=== PATIENT | male | born 1975 | race Caucasian/White ===

== ENCOUNTER → 2017-02-11 | Outpatient (CLI) | payer OTHER ==
[2017-02-11 08:46] LABS: MEAN PLATELET VOLUME 9.5 FL (7.4-10.4); RED BLOOD COUNT 4.57 10^6/uL (4.35-5.85); RED CELL DISTRIBUTION WIDTH 13.4 % (10.0-14.5)
[2017-02-11 08:50] LABS: BILIRUBIN,URINE NEGATIVE (NEGATIVE); KETONES,URINE NEGATIVE (NEGATIVE); LEUKOCYTE ESTERASE ,URINE NEGATIVE (NEGATIVE); NITRITE,URINE NEGATIVE (NEGATIVE); PH,URINE 5 (5-9); PROTEIN,URINE 1+ (NEGATIVE); UROBILINOGEN,URINE NORMAL (NORMAL)
[2017-02-11 09:04] LABS: SQUAMOUS EPITHELIAL CELL,UR 0-2 /HPF
[2017-02-11 09:13] LABS: ALANINE AMINOTRANSFERASE 37 U/L (0-55); ALBUMIN 3.9 GM/DL (3.2-4.5); ANION GAP 12 MMOL/L (5-14); ASPARTATE AMINO TRANSFERASE 22 U/L (5-34); BILIRUBIN,TOTAL 0.6 MG/DL (0.1-1.0); BLOOD UREA NITROGEN 4 MG/DL (7-18); BUN/CREATININE RATIO 5; CALCIUM 9.6 MG/DL (8.5-10.1); CARBON DIOXIDE 24 MMOL/L (21-32); CHLORIDE 103 MMOL/L (98-107); CHOLESTEROL 170 MG/DL (< 200); CREATININE SERUM 0.77 MG/DL (0.60-1.30); DIRECT LDL 114 MG/DL (1-129); GFR ESTIMATED > 60; GLUCOSE 100 MG/DL (70-105); POTASSIUM 3.6 MMOL/L (3.6-5.0); SODIUM 139 MMOL/L (135-145); TOTAL PROTEIN 7.9 GM/DL (6.4-8.2); TRIGLYCERIDES 115 MG/DL (<150); VLDL CHOLESTEROL 23 MG/DL (5-40)
[2017-02-11 09:33] LABS: THYROID STIMULATING HORMONE 1.18 UIU/ML (0.35-4.94)
== END ==
LOC: LAB 08:30
PROVIDERS: ATTEND Nurse Practitioner Family
DX: I10 Essential (primary) hypertension (principal); E78.5 Hyperlipidemia, unspecified; Z12.5 Encounter for screening for malignant neoplasm of prostate
CPT/HCPCS: 36415; 80053; 80061; 81000; 84153; 84443; 85027

== ENCOUNTER → 2018-02-12 | Outpatient (CLI) | payer OTHER ==
[2018-02-12 09:27] LABS: ALANINE AMINOTRANSFERASE 34 U/L (0-55); ALKALINE PHOSPHATASE 90 U/L (40-136); BILIRUBIN,TOTAL 0.6 MG/DL (0.1-1.0); BUN/CREATININE RATIO 14; CALCIUM 9.5 MG/DL (8.5-10.1); CARBON DIOXIDE 21 MMOL/L (21-32); CHLORIDE 102 MMOL/L (98-107); CHOLESTEROL 167 MG/DL (< 200); CREATININE SERUM 0.77 MG/DL (0.60-1.30); GFR ESTIMATED > 60; GLUCOSE 102 MG/DL (70-105); HDL CHOLESTEROL 41 MG/DL (40-60); POTASSIUM 4.1 MMOL/L (3.6-5.0); SODIUM 136 MMOL/L (135-145); TOTAL PROTEIN 7.6 GM/DL (6.4-8.2); TRIGLYCERIDES 108 MG/DL (<150); VLDL CHOLESTEROL 22 MG/DL (5-40)
[2018-02-12 09:58] LABS: BILIRUBIN,URINE NEGATIVE (NEGATIVE); CLARITY,URINE CLEAR; COLOR,URINE YELLOW; GLUCOSE, URINE (UA) NEGATIVE (NEGATIVE); KETONES,URINE NEGATIVE (NEGATIVE); LEUKOCYTE ESTERASE ,URINE NEGATIVE (NEGATIVE); NITRITE,URINE NEGATIVE (NEGATIVE); PH,URINE 6.5 (5-9); PROTEIN,URINE NEGATIVE (NEGATIVE); UROBILINOGEN,URINE NORMAL (NORMAL)
[2018-02-12 10:07] LABS: BACTERIA,URINE NEGATIVE /HPF
== END ==
LOC: LAB 08:55
PROVIDERS: ATTEND Family Medicine
DX: I10 Essential (primary) hypertension (principal)
CPT/HCPCS: 36415; 80053; 80061; 81000; 84443

== ENCOUNTER 2018-05-18 05:49 | Outpatient (CLI) | payer OTHER ==
[~2018-05-18] VITALS: Ht 177.8 cm; Wt 179.6 kg
[2018-05-18] MEDS ORDERED: LISI-552 PO (14:33)
[2018-05-18] MEDS ORDERED: CYAN500011 PO (14:33)
[2018-05-18] MEDS ORDERED: MULT1CAP27 PO (14:33)
[2018-05-18] MEDS ORDERED: CETI10TA20 PO (14:33)
[2018-05-18] MEDS ORDERED: PRAV20TA3 PO (14:33)
[2018-05-19] MEDS ORDERED: HYDR-3816 PO (13:41)
== END 2018-05-18 14:23 | disposition home or self-care (01) ==
LOC: PREOP 05:49
PROVIDERS: ATTEND Orthopaedic Surgery
DX: Z01.818 Encounter for other preprocedural examination (principal)

== ENCOUNTER 2018-05-19 09:32 | Day surgery (SDC) | payer OTHER ==
[~2018-05-19] VITALS: Ht 177.8 cm; Wt 179.6 kg
[~2018-05-19 09:32] MED LIST: CETI10TA20 PO; CYAN500011 PO; LISI-552 PO; MULT1CAP27 PO; PRAV20TA3 PO
[2018-05-19 09:45] VITALS: BP 141/84
[2018-05-19] MEDS ORDERED: HYDROcodone/APAP 7.5 MG/325 MG (LORTAB, LORCET PLUS) TABLET PO PRN (09:45)
--- NOTE | 2018-05-19 10:16 | Progress Note-Pre Operative ---
Pre-Operative Progress Note H&P Reviewed The H&P was reviewed, patient examined and no changes noted. Date Seen by Provider: May 19, 2018 Time Seen by Provider: 10:16 Date H&P Reviewed: May 19, 2018 Time H&P Reviewed: 10:16 Pre-Operative Diagnosis: left knee medial meniscus tear and chondromalacia JENS CLEMENT MD May 19, 2018 10:16
--- NOTE | 2018-05-19 10:18 | Progress Note-Post Operative ---
Post-Operative Progess Note Surgeon (s)/Mortgage Clerk (s) Surgeon JENS CLEMENT MD Mortgage Clerk: Maurice Mon Pre-Operative Diagnosis left knee medial meniscus tear and chondromalacia Post-Operative Diagnosis left knee chondromalacia of the patella, medial femoral condyle, lateral tibial plateau Procedure & Operative Findings Date of Procedure 05/19/18 Procedure Performed/Findings left knee arthroscopic chondroplasty of the patella, medial femoral condyle and lateral tibial plateau Anesthesia Type GETA Estimated Blood Loss Estimated blood loss (mL): minimal Specimens/Packing Specimens Removed none Packing: none JENS CLEMENT MD May 19, 2018 10:18
[2018-05-19] MEDS ORDERED: morphine PF (DURAMORPH) 10 MG/10 ML AMP ONE (10:39)
[2018-05-19] MEDS ORDERED: BUPIVACAINE 0.25% 30 ML (SENSORCAINE) VIAL ONE (10:39)
[2018-05-19] MEDS ORDERED: ceFAZolin INJECTION 1,000 MG in WATER (STERILE) FOR INJECTION 10 ML IV ONE (10:45)
[2018-05-19] MEDS ORDERED: LACTATED RINGERS 1,000 ML IV PRN (10:53)
[2018-05-19] MEDS ORDERED: fentaNYL INJECTION 100 MCG/2 ML AMP ONE (10:54)
[2018-05-19] MEDS ORDERED: LIDOCAINE PF 2% 5 ML (XYLOCAINE) VIAL ONE (10:54)
[2018-05-19] MEDS ORDERED: proPOfol 200 MG/20 ML (DIPRIVAN) VIAL IV ONE ×2 (10:54→12:35)
[2018-05-19] MEDS ORDERED: ONDANSETRON 4 MG/2 ML (SDV) Z0FRAN ONE (10:54)
[2018-05-19] MEDS ORDERED: MIDAZOLAM 2 MG/2 ML (VERSED) VIAL ONE (10:54)
[2018-05-19] MEDS ORDERED: DEXAMETHASONE 10 MG/ML (DECADRON) 1 ML VIAL ONE (10:54)
[2018-05-19] MEDS ORDERED: SEVOFLURANE (ULTANE) 15 ML INHAL SOLN ONE ×3 (10:54→12:10)
[2018-05-19] MEDS ORDERED: ONDANSETRON 4 MG/2 ML (SDV) Z0FRAN IV ONE (11:00)
[2018-05-19] MEDS ORDERED: FAMOTIDINE 20MG/2ML IV (PEPCID) IV ONE (11:00)
[2018-05-19] MEDS ORDERED: SCOPOLAMINE 1.5 MG (TRANSDERM-SCOP) PATCH TOP ONE (11:00)
[2018-05-19] MEDS ORDERED: GLYCOPYRROLATE 0.2 MG/ML (ROBINUL) 2 ML VIAL ONE (12:15)
[2018-05-19] MEDS ORDERED: NEOSTIGMINE 1 MG/ML 5 ML SYRINGE ONE (12:15)
[2018-05-19] MEDS ORDERED: PHENYLEPHRINE 100 MCG/ML 10 ML (ANESTHESIA) SYR ONE (12:15)
[2018-05-19] MEDS ORDERED: SUCCINYLCHOLINE INJ 100 MG/5 ML SYR ONE (12:35)
[2018-05-19] MEDS ORDERED: ROCURONIUM 10 MG/ML 5 ML SYRINGE IV ONE (12:35)
[2018-05-19] MEDS ORDERED: ONDANSETRON 4 MG/2 ML (SDV) Z0FRAN IVP PRN (13:00)
[2018-05-19] MEDS ORDERED: morphine INJ 10 MG/ML 1ML (SYR OR VIAL) IVP ONE (13:00)
[2018-05-19 13:20] VITALS: BP 118/61
[2018-05-19] MEDS ORDERED: HYDR-3816 PO (13:41)
[2018-05-19 13:50] VITALS: BP 112/60
[2018-05-19 14:20] VITALS: BP 121/63
--- NOTE | 2018-05-19 14:42 | Anesthesia-General Post-Op ---
General Patient Condition Mental Status/LOC: Same as Preop Cardiovascular: Satisfactory Nausea/Vomiting: Absent Respiratory: Satisfactory Pain: Controlled Complications: Absent Post Op Complications Complications None Follow Up Care/Instructions Patient Instructions None needed. Anesthesia/Patient Condition Patient Condition Patient was seen after the procedure and he was doing well, no complaints, stable vital signs, no apparent adverse anesthesia problems. KANDY CORTEZ DO May 19, 2018 14:42
[2018-05-19 14:44] VITALS: BP 121/63
--- NOTE | 2018-05-19 15:16 | Physical Therapy Progress Note ---
Therapy Progress Note Spoke with patient. He reports he does not feel he needs gait training as he has his right knee scoped recently. Reviewed HEP with patient and he demonstrated correct performance. No evaluation rendered. NELSON DAVE PT May 19, 2018 15:16
--- NOTE | 2018-05-19 17:31 | OPERATIVE REPORT ---
DATE OF SERVICE: 05/19/2018 PREOPERATIVE DIAGNOSES: 1. Left knee medial meniscus tear. 2. Left knee chondromalacia of the patella. POSTOPERATIVE DIAGNOSES: 1. Left knee chondromalacia of the patella. 2. Left knee chondromalacia of the medial femoral condyle. 3. Left knee chondromalacia of the lateral tibial plateau. PROCEDURES PERFORMED: 1. Left knee arthroscopic chondroplasty of the patella, left. 2. Left knee arthroscopic chondroplasty of the medial femoral condyle. 3. Left knee arthroscopic chondroplasty of the lateral tibial plateau. SURGEON: Roberto Clement MD. CAGE OPERATOR: TAMMI Soto, who assisted throughout the procedure and closed the incisions. ANESTHESIA: General endotracheal by Bridgett Bazan CRNA. TOURNIQUET TIME: Not applicable. ESTIMATED BLOOD LOSS: Minimal. DRAINS: None. COMPLICATIONS: None. POSTOPERATIVE PLANS: Routine arthroscopy protocol. The patient was transferred to the recovery room in awake and stable condition. STATEMENT OF MEDICAL NECESSITY: The patient is a 42-year-old gentleman with complaints of left medial and anterior knee pain, catching, locking and swelling. He is tender along the medial joint line and moderate effusion and pain with patellar loading. It was felt that he likely had patellar chondromalacia with associated medial meniscus tear. Due to functional impairment and failure to improve with conservative measures, the patient elected to proceed with surgical intervention. Examination under anesthesia revealed range of motion of 0/0/125 with negative Johnathan, negative anterior and posterior drawer. No varus valgus laxity and negative pivot shift. Arthroscopic findings, patella demonstrated grade II chondral flap superiorly in a 20 x 15 area. The trochlea demonstrated no gross chondral abnormalities. The medial and lateral gutters were clear. The ACL and PCL were intact. The medial compartment showed a grade IV chondral flap on the anterior aspect of the femoral condyle in an 8 x 8 area. No meniscal pathology was noted. The ACL and PCL were intact. The lateral compartment demonstrated grade II chondral flap in the central portion of the tibial plateau in an 8 x 8 area. DESCRIPTION OF PROCEDURE: After risks and benefits of the procedure were discussed and questions were answered and informed consent was signed and placed on chart, the operative site was confirmed in the preoperative holding area initialed by the surgeon. The patient was transferred to the operating room. After adequate level of general endotracheal anesthetic was obtained, a timeout was called confirming the operative site. The left lower extremity was prepped and draped in the usual sterile fashion. The knee joint was injected with 60 mL of fluid. Standard inferolateral portal was placed with the arthroscope under direct visualization and inferior medial portal was created. The menisci and cruciates were carefully probed with the above findings noted. The unstable chondral flaps of the patella were debrided with a shaver back to a stable edge. Scope was redirected into the lateral compartment and the unstable chondral flaps and lateral tibial plateau were debrided with a shaver back to a stable edge. Scope was redirected into the medial compartment where the unstable chondral flaps in the medial femoral condyle were debrided back to a stable edge. The knee was copiously irrigated. Portal sites were closed with 4-0 nylon in subcuticular fashion. Knee was injected with Duramorph. The portal sites were infiltrated with plain Marcaine. A soft dressing was applied and the patient was transported to the recovery room awake and stable condition. Job ID: [id number] DocumentID: [id number] Dictated Date: 05/19/2018 12:29:09 Patrol Mother Date: 05/19/2018 17:30:49 Dictated By: ROBERTO CLEMENT MD
--- NOTE | 2018-05-20 16:03 | HISTORY AND PHYSICAL ---
DATE OF SERVICE: 05/19/2018 This will be for outpatient surgery. CHIEF COMPLAINT: Left knee arthroscopy. HISTORY OF PRESENT ILLNESS: The patient is a 42-year-old gentleman with progressive worsening left knee pain. He reports catching, locking and swelling in his knee. He reports activity limitations because of the knee. He reports he is unable to work because of the knee. He has previously undergone a right knee arthroscopy for similar complaints which resolved arthroscopy, he has undergone injections without relief. Due to functional impairment and failure to improve with conservative measures, the patient has elected to proceed with surgical intervention. REVIEW OF SYSTEMS: No chest pain, no shortness of breath. No dysuria. PAST MEDICAL HISTORY: Hypertension, hypercholesterolemia. PAST SURGICAL HISTORY: Lymph node excision, right knee arthroscopy. PRIMARY CARE PROVIDER: Dr. Malagon. FAMILY HISTORY: Significant for stroke. MEDICATIONS: Zyrtec, lisinopril, pravastatin, vitamin B12. ALLERGIES: No known drug allergies. SOCIAL HISTORY: The patient denies alcohol, tobacco use. RADIOGRAPHS: Reveal no significant degenerative changes of the left knee. PHYSICAL EXAMINATION: GENERAL: The patient is well developed, well-nourished, in no acute distress. HEENT: Normocephalic, atraumatic. Pupils are equal, round and reactive to light. Oropharynx is clear. NECK: Supple, with no lymphadenopathy. LUNGS: Clear to auscultation bilaterally. HEART: Regular rate and rhythm. ABDOMEN: Soft, nontender, nondistended. EXTREMITIES: The left knee demonstrates a moderate effusion. He has marked patellofemoral crepitus and pain with patellar loading. He has a catch when going from flexion to extension at approximately 30 degrees in the left knee. He is mildly tender along his medial joint line and has pain medially with Leonora's. He ambulates with an antalgic gait. Range of motion is 0/0/130. IMPRESSION: Left knee medial meniscus tear with chondromalacia. PLAN: Left knee arthroscopy with partial medial meniscectomy, chondroplasty. The risks, benefits, options, ramifications and recovery were discussed at length with the patient. He understands and wishes to proceed. Job ID: [id number] DocumentID: [id number] Dictated Date: 05/13/2018 11:16:38 Crop Production Advisor Date: 05/13/2018 11:38:00 Dictated By: JENS CLEMENT MD <Dictated by JENS CLEMENT MD> <Electronically signed by JENS CLEMENT MD> 05/15/181955
[2018-05-22] MEDS ORDERED: SCOPOLAMINE PATCH REMOVAL TP SCH (10:59)
== END 2018-05-19 14:50 | disposition home or self-care (01) ==
LOC: SDC 09:32
PROVIDERS: ATTEND Orthopaedic Surgery
DX: M23.232 Derangement of other medial meniscus due to old tear or injury, left knee (principal); Z11.2 Encounter for screening for other bacterial diseases; M22.42 Chondromalacia patellae, left knee; I10 Essential (primary) hypertension; E78.00 Pure hypercholesterolemia, unspecified; K21.9 Gastro-esophageal reflux disease without esophagitis; E66.01 Morbid (severe) obesity due to excess calories; Z68.43 Body mass index [BMI] 50.0-59.9, adult; Z79.899 Other long term (current) drug therapy
CPT/HCPCS: 87081

== ENCOUNTER → 2019-08-18 | Outpatient (CLI) | payer OTHER ==
[~2019-08-18] MED LIST changes: -CETI10TA20 PO; +CETI10TA21 PO; +HYDR-34 PO
[2019-08-18 11:01] LABS: BASOPHILS # (AUTO) 0.1 10^3/uL (0.0-0.1); BASOPHILS % (AUTO) 1 % (0-10); EOSINOPHILS # (AUTO) 0.4 10^3/uL (0.0-0.3); EOSINOPHILS % (AUTO) 3 % (0-10); HEMATOCRIT 38 % (40-54); HEMOGLOBIN 12.4 G/DL (13.3-17.7); LYMPHOCYTES # (AUTO) 2.1 X 10^3 (1.0-4.0); LYMPHOCYTES % (AUTO) 17 % (12-44); MEAN CORPUSCULAR HEMOGLOBIN 29 PG (25-34); MEAN CORPUSCULAR HGB CONC 33 G/DL (32-36); MEAN CORPUSCULAR VOLUME 88 FL (80-99); MEAN PLATELET VOLUME 9.4 FL (7.4-10.4); MONOCYTES # (AUTO) 1.1 X 10^3 (0.0-1.0); MONOCYTES % (AUTO) 8 % (0-12); NEUTROPHILS # (AUTO) 8.9 X 10^3 (1.8-7.8); NEUTROPHILS % (AUTO) 71 % (42-75); PLATELET COUNT 291 10^3/uL (130-400); RED CELL DISTRIBUTION WIDTH 14.5 % (10.0-14.5); WHITE BLOOD COUNT 12.6 10^3/uL (4.3-11.0)
[2019-08-18 11:04] LABS: BILIRUBIN,URINE NEGATIVE (NEGATIVE); CLARITY,URINE CLEAR; COLOR,URINE YELLOW; GLUCOSE, URINE (UA) NEGATIVE (NEGATIVE); KETONES,URINE NEGATIVE (NEGATIVE); LEUKOCYTE ESTERASE ,URINE NEGATIVE (NEGATIVE); NITRITE,URINE NEGATIVE (NEGATIVE); PH,URINE 6.5 (5-9); PROTEIN,URINE NEGATIVE (NEGATIVE)
[2019-08-18 11:07] LABS: ALBUMIN 3.9 GM/DL (3.2-4.5); CHLORIDE 102 MMOL/L (98-107); POTASSIUM 3.8 MMOL/L (3.6-5.0); SODIUM 136 MMOL/L (135-145)
[2019-08-18 11:08] LABS: CALCIUM 9.4 MG/DL (8.5-10.1)
[2019-08-18 11:09] LABS: TRIGLYCERIDES 129 MG/DL (<150); VLDL CHOLESTEROL 26 MG/DL (5-40)
[2019-08-18 11:10] LABS: GLUCOSE 98 MG/DL (70-105); TOTAL PROTEIN 7.7 GM/DL (6.4-8.2)
[2019-08-18 11:11] LABS: BILIRUBIN,TOTAL 0.5 MG/DL (0.1-1.0); CARBON DIOXIDE 23 MMOL/L (21-32)
[2019-08-18 11:13] LABS: ALKALINE PHOSPHATASE 98 U/L (40-136); CREATININE SERUM 0.72 MG/DL (0.60-1.30); GFR ESTIMATED > 60
[2019-08-18 11:13] LABS: BACTERIA,URINE NEGATIVE /HPF; SQUAMOUS EPITHELIAL CELL,UR RARE /HPF
[2019-08-18 11:14] LABS: CHOLESTEROL 165 MG/DL (< 200)
[2019-08-18 11:15] LABS: BUN/CREATININE RATIO 10
[2019-08-18 11:16] LABS: ALANINE AMINOTRANSFERASE 41 U/L (0-55); HDL CHOLESTEROL 38 MG/DL (40-60)
== END ==
LOC: LAB 10:21
PROVIDERS: ATTEND Nurse Practitioner Family
DX: E78.5 Hyperlipidemia, unspecified (principal); I10 Essential (primary) hypertension; E66.9 Obesity, unspecified
CPT/HCPCS: 36415; 80053; 80061; 81000; 83525; 83880; 84443; 85025

== ENCOUNTER → 2019-08-23 | Outpatient (CLI) | payer OTHER ==
--- NOTE | 2019-08-23 17:42 | Diagnostic Imaging Report ---
INDICATION: Cardiac murmur and hypertension. TIME OF EXAM: 02:29 p.m. COMPARISON: No prior studies are available for comparison. FINDINGS: The heart size is normal. There is some minimal density in the right base on the frontal view. Minimal infiltrate at this location cannot be excluded. Otherwise, the lungs are clear. Pulmonary vascularity is normal. There is no effusion or pneumothorax. IMPRESSION: Questionable minimal right basilar infiltrate. The study is otherwise unremarkable. Dictated by: Dictated on workstation # [id number]
== END ==
LOC: CARD 13:40
PROVIDERS: ATTEND Nurse Practitioner Family
DX: I10 Essential (primary) hypertension (principal); E78.5 Hyperlipidemia, unspecified; E66.9 Obesity, unspecified
CPT/HCPCS: 71046; 93005; 93306

== ENCOUNTER → 2020-09-05 | Outpatient (CLI) | payer OTHER ==
[~2020-09-05] MED LIST changes: -CETI10TA21 PO; +CETI10TA49 PO; -LISI-552 PO; +LISI20TA26 PO
[2020-09-05 08:57] LABS: BASOPHILS # (AUTO) 0.1 10^3/uL (0.0-0.1); BASOPHILS % (AUTO) 1 % (0-10); EOSINOPHILS # (AUTO) 0.4 10^3/uL (0.0-0.3); EOSINOPHILS % (AUTO) 4 % (0-10); HEMATOCRIT 38 % (40-54); HEMOGLOBIN 12.4 g/dL (13.3-17.7); LYMPHOCYTES # (AUTO) 2.3 10^3/uL (1.0-4.0); LYMPHOCYTES % (AUTO) 19 % (12-44); MEAN CORPUSCULAR HEMOGLOBIN 29 pg (25-34); MEAN CORPUSCULAR HGB CONC 33 g/dL (32-36); MEAN CORPUSCULAR VOLUME 89 fL (80-99); MEAN PLATELET VOLUME 9.6 fL (9.0-12.2); MONOCYTES # (AUTO) 0.9 10^3/uL (0.0-1.0); MONOCYTES % (AUTO) 8 % (0-12); NEUTROPHILS % (AUTO) 68 % (42-75); PLATELET COUNT 298 10^3/uL (130-400); WHITE BLOOD COUNT 11.8 10^3/uL (4.3-11.0)
[2020-09-05 09:12] LABS: BILIRUBIN,URINE NEGATIVE (NEGATIVE); CLARITY,URINE CLEAR; COLOR,URINE YELLOW; GLUCOSE, URINE (UA) NEGATIVE (NEGATIVE); KETONES,URINE TRACE (NEGATIVE); LEUKOCYTE ESTERASE ,URINE NEGATIVE (NEGATIVE); NITRITE,URINE NEGATIVE (NEGATIVE); PROTEIN,URINE TRACE (NEGATIVE)
[2020-09-05 09:24] LABS: ALANINE AMINOTRANSFERASE 43 U/L (0-55); ALBUMIN 3.8 GM/DL (3.2-4.5); ALKALINE PHOSPHATASE 105 U/L (40-136); BILIRUBIN,TOTAL 0.5 MG/DL (0.1-1.0); BUN/CREATININE RATIO 8; CALCIUM 9.7 MG/DL (8.5-10.1); CARBON DIOXIDE 23 MMOL/L (21-32); CHLORIDE 101 MMOL/L (98-107); CHOLESTEROL 159 MG/DL (< 200); CREATININE SERUM 0.96 MG/DL (0.60-1.30); GFR ESTIMATED > 60; GLUCOSE 101 MG/DL (70-105); HDL CHOLESTEROL 38 MG/DL (40-60); POTASSIUM 3.7 MMOL/L (3.6-5.0); SODIUM 135 MMOL/L (135-145); TOTAL PROTEIN 8.1 GM/DL (6.4-8.2); TRIGLYCERIDES 117 MG/DL (<150); VLDL CHOLESTEROL 23 MG/DL (5-40)
[2020-09-05 09:36] LABS: BACTERIA,URINE NEGATIVE /HPF; HYALINE CASTS, URINE 25-50 /LPF; SQUAMOUS EPITHELIAL CELL,UR RARE /HPF
== END ==
LOC: LAB 08:28
DX: I10 Essential (primary) hypertension (principal); E66.9 Obesity, unspecified; E78.49 Other hyperlipidemia
CPT/HCPCS: 36415; 80053; 80061; 81000; 83525; 84443; 85025

== ENCOUNTER → 2022-01-01 | Outpatient (CLI) | payer OTHER ==
[2022-01-01 13:41] LABS: HEMATOCRIT 35 % (40-54); HEMOGLOBIN 11.4 g/dL (13.3-17.7); MEAN CORPUSCULAR HEMOGLOBIN 28 pg (25-34); MEAN CORPUSCULAR HGB CONC 32 g/dL (32-36); MEAN CORPUSCULAR VOLUME 88 fL (80-99); MEAN PLATELET VOLUME 9.4 fL (9.0-12.2); PLATELET COUNT 293 10^3/uL (130-400)
[2022-01-01 13:42] LABS: BILIRUBIN,URINE NEGATIVE (NEGATIVE); CLARITY,URINE CLEAR; COLOR,URINE YELLOW; GLUCOSE, URINE (UA) NEGATIVE (NEGATIVE); KETONES,URINE NEGATIVE (NEGATIVE); LEUKOCYTE ESTERASE ,URINE NEGATIVE (NEGATIVE); NITRITE,URINE NEGATIVE (NEGATIVE); PROTEIN,URINE NEGATIVE (NEGATIVE)
[2022-01-01 13:52] LABS: ALBUMIN 3.7 GM/DL (3.2-4.5); POTASSIUM 3.7 MMOL/L (3.6-5.0)
[2022-01-01 13:53] LABS: CALCIUM 9.2 MG/DL (8.5-10.1)
[2022-01-01 13:55] LABS: TOTAL PROTEIN 7.6 GM/DL (6.4-8.2)
[2022-01-01 13:56] LABS: BILIRUBIN,TOTAL 0.7 MG/DL (0.1-1.0)
[2022-01-01 13:58] LABS: CREATININE SERUM 0.83 MG/DL (0.60-1.30)
[2022-01-01 14:15] LABS: BACTERIA,URINE NEGATIVE /HPF
[2022-01-01 16:16] LABS: ABSOLUTE RETIC # 149 10e9/uL (24-90); BASOPHILS # (AUTO) 0.1 10^3/uL (0.0-0.1); BASOPHILS % (AUTO) 1 % (0-10); EOSINOPHILS # (AUTO) 0.4 10^3/uL (0.0-0.3); EOSINOPHILS % (AUTO) 3 % (0-10); HEMATOCRIT 35 % (40-54); HEMOGLOBIN 11.7 g/dL (13.3-17.7); LYMPHOCYTES % (AUTO) 15 % (12-44); MEAN CORPUSCULAR HEMOGLOBIN 29 pg (25-34); MEAN CORPUSCULAR HGB CONC 33 g/dL (32-36); MEAN CORPUSCULAR VOLUME 88 fL (80-99); MEAN PLATELET VOLUME 9.8 fL (9.0-12.2); MONOCYTES % (AUTO) 8 % (0-12); NEUTROPHILS # (AUTO) 9.6 10^3/uL (1.8-7.8); NEUTROPHILS % (AUTO) 73 % (42-75); PLATELET COUNT 300 10^3/uL (130-400); RETICULOCYTE % 3.72 % (0.50-2.40); WHITE BLOOD COUNT 13.1 10^3/uL (4.3-11.0)
[2022-01-01 16:57] LABS: EOSINOPHILS % (MANUAL) 3 %; LYMPHOCYTES % (MANUAL) 15 %; MONOCYTES % (MANUAL) 7 %; NEUTROPHILS % (MANUAL) 75 %; RBC MORPH NORMAL
== END ==
LOC: LAB 13:04
DX: R19.7 Diarrhea, unspecified (principal); I10 Essential (primary) hypertension; E66.9 Obesity, unspecified
CPT/HCPCS: 36415; 80053; 80061; 81000; 82607; 82728; 82746; 83036; 83540; 83550; 84443; 85007; 85027; 85045; 85055; 86021; 86671

== ENCOUNTER → 2022-01-01 | Outpatient (CLI) | payer OTHER | LOC: LAB 12:54 | DX: Z01.89 Encounter for other specified special examinations (principal) ==

== ENCOUNTER → 2022-01-16 | Outpatient (CLI) | payer OTHER ==
--- NOTE | 2022-01-16 10:41 | Diagnostic Imaging Report ---
PROCEDURE: US Thyroid. TECHNIQUE: Multiple real-time grayscale images were obtained of the thyroid in various projections. INDICATION: Thyroid fullness COMPARISON: None available FINDINGS: The right lobe of thyroid gland measures 4.8 x 1.7 x 2.4 cm. Maintains a homogeneous echotexture without discrete nodule. The left lobe of thyroid gland measures 4.3 x 2.0 x 1.9 cm. It maintains a homogeneous echotexture without discrete nodule. The isthmus is unremarkable. IMPRESSION: Unremarkable examination. Dictated by: Dictated on workstation # [id number]
== END ==
LOC: RAD 07:51
PROVIDERS: ATTEND Nurse Practitioner Family
DX: E07.9 Disorder of thyroid, unspecified (principal)
CPT/HCPCS: 76536

== ENCOUNTER → 2022-07-21 | Outpatient (CLI) | payer OTHER ==
[2022-07-21 08:10] LABS: HEMATOCRIT 38 % (40-54); HEMOGLOBIN 12.5 g/dL (13.3-17.7); MEAN CORPUSCULAR HEMOGLOBIN 29 pg (25-34); MEAN CORPUSCULAR HGB CONC 33 g/dL (32-36); MEAN CORPUSCULAR VOLUME 88 fL (80-99); MEAN PLATELET VOLUME 9.9 fL (9.0-12.2); PLATELET COUNT 286 10^3/uL (130-400); WHITE BLOOD COUNT 10.9 10^3/uL (4.3-11.0)
[2022-07-21 08:13] LABS: BILIRUBIN,URINE NEGATIVE (NEGATIVE); CLARITY,URINE CLEAR; COLOR,URINE YELLOW; GLUCOSE, URINE (UA) NEGATIVE (NEGATIVE); KETONES,URINE NEGATIVE (NEGATIVE); LEUKOCYTE ESTERASE ,URINE NEGATIVE (NEGATIVE); NITRITE,URINE NEGATIVE (NEGATIVE); PROTEIN,URINE TRACE (NEGATIVE)
[2022-07-21 08:23] LABS: ALBUMIN 3.9 GM/DL (3.2-4.5); POTASSIUM 4.2 MMOL/L (3.6-5.0)
[2022-07-21 08:24] LABS: CALCIUM 9.5 MG/DL (8.5-10.1)
[2022-07-21 08:27] LABS: BILIRUBIN,TOTAL 0.6 MG/DL (0.1-1.0)
[2022-07-21 08:29] LABS: CREATININE SERUM 0.92 MG/DL (0.60-1.30)
[2022-07-21 08:36] LABS: AMORPHOUS SEDIMENT,UR RARE AMOR URATES /LPF; BACTERIA,URINE NEGATIVE /HPF; WBC,URINE 0-2 /HPF
== END ==
LOC: LAB 07:48
PROVIDERS: ATTEND Family Medicine
DX: I10 Essential (primary) hypertension (principal)
CPT/HCPCS: 36415; 80053; 80061; 81000; 83036; 84443; 85027

== ENCOUNTER → 2022-08-19 | Outpatient (CLI) | payer BC, OTHER | LOC: CARD 08:18 | PROVIDERS: ATTEND Internal Medicine Cardiovascular Disease | DX: R06.09 Other forms of dyspnea (principal) | CPT/HCPCS: 93306 ==

== ENCOUNTER → 2022-10-21 | Outpatient (CLI) | payer BC, OTHER ==
[~2022-10-21] MED LIST changes: +REGADENOSON 0.4 MG/5 ML SYR (LEXISCAN) IV ONE
[2022-10-21] MEDS: CATHETER FLUSH 10 ML SYR IVP PRN ×2 (07:54→09:29)
[2022-10-21 09:23] VITALS: BP 166/81
--- NOTE | 2022-10-21 21:55 | STRESS TEST ---
DATE OF SERVICE: 10/21/2022 RESTING AND POST REGADENOSON TECHNETIUM-99M TETROFOSMIN SPECT CT IMAGING ORDERING PHYSICIAN: Dr. Arriola. PRIMARY PHYSICIAN: Dr. Malagon. CLINICAL DIAGNOSIS: Shortness of breath. Baseline images were carried out after injection of 10.57 mCi of technetium-99m tetrofosmin. This was followed by 0.4 mg regadenoson and 32.8 mCi of technetium-99m tetrofosmin for stress imaging. The electrocardiogram showed sinus rhythm at baseline. It did not change significantly with regadenoson infusion. The patient tolerated the procedure well. Review of images at rest and following stress indicates a patchy tracer uptake. This is probably artifact from the patient's body habitus. [ ] uptake appears to be diminished at the apex and in the diaphragmatic wall of the left ventricle, both at rest and following regadenoson infusion. However, gated images show normal global left ventricular systolic function with normal regional wall motion, including the apical and diaphragmatic wall of the left ventricle. Left ventricular end-diastolic volume is 106 mL, TID is absent (0.86). CONCLUSIONS: 1. Technically difficult study. 2. No evidence of significant myocardial ischemia or infarction. 3. Normal regional wall motion. 4. Normal global left ventricular systolic function with a calculated ejection fraction of 68%. 5. Mild cardiomegaly. Job ID: [id number] DocumentID: [id number] Dictated Date: 10/21/2022 19:13:21 Anchor Tacker Date: 10/21/2022 21:54:00 Dictated By: KARIN ARRIOLA MD; MA; FACP; FACC;
== END ==
LOC: CARD 07:39
PROVIDERS: ATTEND Internal Medicine Cardiovascular Disease
DX: R06.09 Other forms of dyspnea (principal)
CPT/HCPCS: 78452; 93017; A9502